=== PATIENT | female | born 1935 | race Caucasian/White ===

== ENCOUNTER 2016-12-06 10:26 | Inpatient (IN) | payer MEDICARE, MEDICAID ==
[~2016-12-06] VITALS: Ht 162.6 cm; Wt 88.4 kg
--- NOTE | ~2016-12-06 | HP ---
PATIENT'S NAME: LUDMILA BARAHONA [facility] AGE: 81 Y [address] ROOM: [address] [address] LOCATION: [facility] [place] ADMIT DATE: 12/06/2016 History & Physical DISCHARGE DATE: FAMILY PHYSICIAN: PEYMAN DENSON MD ATTENDING PHYSICIAN: PEYMAN DENSON DATE OF SERVICE: 12/07/2016 CLINICAL UPDATE: The patient is seen today. She says her back still hurts. Please see history and physical. She was admitted yesterday when she had unrelenting lower thoracic and upper back pain. Frankly, her workup yesterday showed no evidence of an acute spine problem and the rest of her workup was negative. Because of marked spasm and inability to get around and pain control, she has been admitted in the hospital. Today when I see her, she still says she is on the pain medicine, feels a little bit dizzy, and yesterday I ordered that we try to get Dr. Sina Constantino, the back surgeon, see her. She is not comfortable going home yet today because she is unsteady on her feet, so will go with PT/OT, continue pain management, and have Sina Constantino's review things tonight, and possibly home tomorrow. MD SAYDA HOGAN/salvatorel /[id number] D: [id number] T: [id number] HISTORY & PHYSICAL
--- NOTE | ~2016-12-06 | ER ---
PATIENT'S NAME: LUDMILA BARAHONA [facility] AGE: 81 Y [address] ROOM: [place] [address] LOCATION: [facility] [place] ADMIT DATE: 12/06/2016 ER/Outpatient Report DISCHARGE DATE: FAMILY PHYSICIAN: PEYMAN DENSON MD ATTENDING PHYSICIAN: PEYMAN DENSON Admission date and time documented in the medical record. I saw the patient at 1035 hours. CHIEF COMPLAINT: Mid thoracic back pain. HISTORY OF PRESENT ILLNESS: The patient is an 81-year-old female, who yesterday morning blew her nose and twisted to throw the Kleenex in the trash, felt a pop in her mid back, and since that time, she has had severe pain, unable to move much. Brought to the emergency room by paramedics via ambulance for evaluation. No recent coughs, colds, flus, fever, chills, or sweats. No lightheadedness, dizziness, syncope, or near syncope. No fall or other trauma. No headache, eyes, ears, nose, throat pain. No chest pain, shortness of breath. No abdominal pain, nausea, vomiting, diarrhea, or incontinence of stool or urine. No joint or muscle swelling, redness, or pain. No skin eruptions or rash. No history of endocrine problems, neuro changes, or psych issues. Mainly has problems with degenerative osteoarthritis, osteoporosis, spinal stenosis, degenerative joint disease, degenerative disk disease. HOME MEDICATIONS: See attached medication list. ALLERGIES: PENICILLIN, SULFA, IODINE, MORPHINE SULFATE, CODEINE. SOCIAL HISTORY: Nonsmoker since 1980, nondrinker. SIGNIFICANT PAST MEDICAL HISTORY: Hypertension, gastroesophageal reflux, degenerative osteoarthritis, osteoporosis, spinal stenosis, degenerative joint disease, degenerative disk disease, remote tobacco abuse. OPERATIONS: Left total knee arthroplasty, back surgery, hysterectomy, right shoulder surgery x2, bunionectomy, tonsillectomy, right total hip arthroplasty. REVIEW OF SYSTEMS: PATIENT'S NAME: LUDMILA BARAHONA [facility] AGE: 81 Y [address] ROOM: [address] [address] LOCATION: [facility] [place] ADMIT DATE: 12/06/2016 ER/Outpatient Report DISCHARGE DATE: FAMILY PHYSICIAN: PEYMAN DENSON MD ATTENDING PHYSICIAN: PEYMAN DENSON All systems reviewed by me are negative with the exception of those discussed in the history of present illness. PHYSICAL EXAMINATION: VITAL SIGNS: Temperature 97.8 tympanic, pulse 86, respirations 20, blood pressure 193/86, O2 saturation on room air is 96%. HEENT: Negative. NECK: Negative. LUNGS: Clear. HEART: Regular. ABDOMEN: Soft, nondistended, nontender. Good bowel tones. EXTREMITIES: Moves all 4 extremities. No peripheral edema, cyanosis, or deformity. NEUROVASCULAR: Intact. SKIN: Clear. MUSCULOSKELETAL: Straight leg raising negative. The patient has pain just with any movement. Tender mid thoracic back area. LABORATORY DATA AND X-RAYS: Plain films of the thoracic and lumbosacral spine showed old compression fracture at T11 and L3-L4. No acute fracture or subluxation. We will review all plain films with the radiologist. CT scan of the thoracic spine showed no acute subluxation or fracture. Does have degenerative changes. She has an old compression fracture at T11, nothing new according to the radiologist, who read the CT scan. See dictated transcribed report. EMERGENCY DEPARTMENT COURSE: I did give the patient IV Solu-Medrol 125 mg, IV fentanyl a total of 100 mcg, and Valium 5 mg IV in the emergency department. Discussed the patient with Dr. Denson and will admit the patient to [facility]. IMPRESSION: Mid thoracic back pain, mainly musculoskeletal. MD KATLYN HENDRIX/modl /[id number] d: 12/06/162105 t: 12/17/161810, OUTPATIENT REPORT
--- NOTE | ~2016-12-06 | CON ---
PATIENT'S NAME: LUDMILA DUARTE [facility] AGE: 81 Y [address] ROOM: [place] [address] LOCATION: [facility] [place] ADMIT DATE: 12/08/2016 Consultation DISCHARGE DATE: FAMILY PHYSICIAN: PEYMAN DENSON MD ATTENDING PHYSICIAN: PEYMAN DENSON DATE OF CONSULTATION: 12/07/2016 REFERRING PHYSICIAN: Zoraida Frost MD TIME: 11:00 p.m. HISTORY OF PRESENT ILLNESS: Ms. Duarte is an 81-year-old, white female, healthy. She was admitted to the [facility] on 12/06 after several days of severe pain. Initially in the emergency room, it was recorded that she had upper thoracic pain. Today, she reports the pain is truly low back pain. She has a history of chronic back pain, but this pain is different and worse than normal. No real trauma. She denies documented fevers and chills, but has had for the last several days recurring sweats. 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 No current left knee symptoms, not on suppressive antibiotics. She has a right total hip in place and reports increasing pain about the right hip. Pain radiates down the right leg greater than the left leg. No significant weakness or numbness or loss of bowel or bladder control. Her back history goes back to the mid 90s and she had multiple level laminectomies. She developed instability and has had chronic pain. She also has some degree of osteoporosis and has had multiple compression fractures at thoracic 11, lumbar 2, lumbar 3, and lumbar 4. The lumbar 4 level required vertebral body augmentation. There were no recognized infections after undergone previous back procedures. Not on any medical treatment for her osteoporosis. She stopped doing her exercise program because of increasing pain. She can normally walk several feet. At home, she takes Daypro and Cymbalta. ALLERGIES: TO: 1. PENICILLIN. 2. SULFA. 3. IODINE. 4. MORPHINE. 5. CODEINE. CURRENT MEDICATIONS: See list. PATIENT'S NAME: LUDMILA DUARTE [facility] AGE: 81 Y [address] ROOM: [place] [address] LOCATION: [facility] [place] ADMIT DATE: 12/08/2016 Consultation DISCHARGE DATE: FAMILY PHYSICIAN: PEYMAN DENSON MD ATTENDING PHYSICIAN: PEYMAN DENSON PAST MEDICAL HISTORY: 1. 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 2. Right total hip replacement. 3. Previous laminectomies in low back with instability and stenosis. 4. Placement of a dorsal column stimulator, 2 months ago. 5. Vertebral body augmentation for lumbar 4 compression fracture, multiple other lumbar compression fractures, and thoracic 11 compression fractures. SOCIAL HISTORY: Does not smoke. Does not drink alcohol. FAMILY MEDICAL HISTORY: Unremarkable. PERSONAL AND SOCIAL HISTORY: Lives with her daughter. She is basically only a household ambulator. Being able to walk only several feet, been this way for years. PHYSICAL EXAMINATION: GENERAL: White female, in mild distress. HEENT: Hears and sees. NECK: Nontender. BACK: Thoracic spine is nontender, extensively percussed the area about thoracic 11. There was no tenderness. Low back is generally tender. Left- sided dorsal column stimulator generator pocket and midline entry site are all healed. There is no redness, warmth, drainage, or fluctuance. There is spasm of the paraspinous muscles more on the right than the left. Discomfort on moving the right hip. No pain on moving the left hip. Left total knee replacement scar. There was multiple incisions healed without redness, warmth, drainage, or fluctuance. HEART: Pulse rate is regular. LUNGS: Able to take in a deep breath. ABDOMEN: Soft and nontender. NEUROLOGIC: Sensation is intact to both lower extremities. Motor strength 5/5 at the iliopsoas, quads, anterior tib, gastrocs, and extensor hallucis longus bilaterally. Normal tone. NERVE TENSION TESTING: Very positive Tinel's over the right lateral femoral cutaneous nerve. Negative on the left. Straight leg raise and bowstring test is negative. VASCULAR: Distal pulses are present. No edema. No calf pain. Integument intact. DIAGNOSTIC DATA: CT scan of thoracic spine shows no significant kyphosis degeneration, PATIENT'S NAME: LUDMILA DUARTE [facility] AGE: 81 Y [address] ROOM: [place] [address] LOCATION: [facility] [place] ADMIT DATE: 12/08/2016 Consultation DISCHARGE DATE: FAMILY PHYSICIAN: PEYMAN DENSON MD ATTENDING PHYSICIAN: PEYMAN DENSON significant compression fracture thoracic 11 which appears chronic and healed. CT scan of the lumbar spine shows destruction of the right lumbar 3 and 4 facet rotary subluxation of 3 and 4 stenosis. Compression fractures of lumbar 2 lumbar 3, lumbar 4, old chronic unhealed cemented vertebral body augmentation in lumbar 4, noticed other destruction of bone. No paraspinous soft tissue swelling. X-rays of the pelvis right hip as well fixed without lysis. Technetium bone scan shows chronic changes of thoracic 11 consistent with remote thoracic 11 fracture still healing. No significant uptake about the right total hip or the left total knee. LABORATORY TESTS: Urine culture, multiple organisms, urinalysis are unremarkable. C-reactive protein 1.56. Hemoglobin 13.1, but white blood count 9.7. Sedimentation rate 66. ASSESSMENT AND PLAN: Elevated sedimentation rate and C-reactive protein elevates especially with severe pain. Technetium bone scan and CT scan do not suggest any diskitis, epidural abscess, or destruction by tumor, but certainly not as sensitive as an MRI. MRI cannot be performed because of the dorsal column stimulator. Most likely, her symptoms are from instability of lumbar 3-[address] her in a soft thoracolumbosacral orthosis with shoulder straps. We will mobilize her on the brace. I have talked to Dr. Paula about initiating a medical treatment program for her osteoporosis. Certainly additional fractures would only make her symptoms worse. If over time, the brace does not allow her like a level activity that she desires and controls her pain reasonably, she could be indicated for decompression and in situ fusion. Risks, benefits, and alternatives have all been discussed. ZORAIDA FROST MD DPM/modl /[id number] d: 12/09/16 1512 t: 12/11/16 1730, CONSULTATION REPORT
--- NOTE | ~2016-12-06 | HP ---
PATIENT'S NAME: LUDMILA DUARTE [facility] AGE: 81 Y [address] ROOM: [address] [address] LOCATION: [facility] [place] ADMIT DATE: 12/08/2016 History & Physical DISCHARGE DATE: FAMILY PHYSICIAN: PEYMAN DENSON MD ATTENDING PHYSICIAN: PEYMAN DENSON DATE OF SERVICE: 12/08/2016 CLINICAL UPDATE I saw Ludmila Duarte this morning. She still cannot get around the room very well. She is not feeling that well on narcotics, and her pain is still not controlled, and she has nausea and insomnia related to medication. She also has a bone scan scheduled for today and further workup of her back pain in light of her elevated sedimentation rate. She has been seeing in consultation by Dr. Sina Constantino, and I do not feel she is ready to go home nor she is safe to do so yet. I would recommend we move her to inpatient care versus outpatient. MD SAYDA HOGAN/modl /[id number] D: 245 T: 033 HISTORY & PHYSICAL
--- NOTE | ~2016-12-06 | DS ---
PATIENT'S NAME: LUDMILA BARAHONA [facility] AGE: 81 Y [address] ROOM: [address] [address] LOCATION: [facility] [place] ADMIT DATE: 12/08/2016 Discharge Summary DISCHARGE DATE: 12/13/2016 FAMILY PHYSICIAN: Peyman Stevens MD ATTENDING PHYSICIAN: Peyman Stevens FINAL DIAGNOSIS: Low back pain secondary to lumbar disk disease and lumbar spinal stenosis. HOSPITAL COURSE: This elderly white female was seen in the emergency room prior to admission and presented with low back pain severe enough not to be able to get home. Her scans of the back showed degenerative change and spinal stenosis, but no acute fracture or dislocation, and old compression fractures. The patient was neurologically intact in her lower extremities on admission. The patient was put at bedrest, given pain medicine, and had continued pain over the 1st 48 hours after admission, was unable to get up and get around well without being lightheaded, and had some problems with pain medicines making her not feel very well. The patient, because of these persistent symptoms, was seen at my request by Dr. Sina Constantino, orthopedic/spine surgeon. Please see Dr. Constantino's notes on the chart and dictation. Dr. Constantino ordered other x-ray/scans of the patient's back and gave us recommendations for continued conservative therapy at this time, and if the patient fails conservative therapy over the next several weeks or months, he would consider a procedure on the patient's low back. Please see the description thereof in Dr. Constantino's notations and dictation. The patient is dismissed from the hospital today, 12/13/2016, to a detention because she really cannot care for herself at home because she has needs for activities of daily living, medical management, PT and OT for her back. She is dismissed on the med list shown. She is to see me back in the office in 1 week. She is to be seen earlier if she has footdrop, groin numbness or incontinence, or has trouble with pain. She understands. PEYMAN STEVENS MD OPTIONS TRADER/malika /[id number] d: 12/13/162000 t: 12/18/16 1440, DISCHARGE SUMMARY
[2016-12-06] MEDS ORDERED: MIRALAX17 GM PO (14:55)
[2016-12-06] MEDS ORDERED: LUNESTA2 MG PO (14:55)
[2016-12-06] MEDS ORDERED: ALDACTONE25 MG PO (14:56)
[2016-12-06] MEDS ORDERED: CYMBALTA60 MG PO (14:56)
[2016-12-06] MEDS ORDERED: NEXIUM40 MG PO (14:57)
[2016-12-06] MEDS ORDERED: HYZAAR 50-12.51 EACH PO (14:57)
[2016-12-06] MEDS ORDERED: ZANAFLEX4 MG PO (14:57)
[2016-12-06] MEDS ORDERED: HYDROCODON-ACE1 EAC4 PO (14:58)
[2016-12-06] MEDS ORDERED: RESTASIS 0.05%1 VIAL OPHTH (14:59)
[2016-12-06] MEDS ORDERED: ZOCOR20 MG PO (14:59)
[2016-12-06] MEDS ORDERED: DAYPRO600 MG PO (14:59)
[2016-12-06] MEDS ORDERED: THERAGRAN-M1 TAB PO (15:00)
[2016-12-06] MEDS ORDERED: BACTROBAN N1 GM/TUBE NOSE (15:00)
[2016-12-06] MEDS ORDERED: ZYRTEC10 MG PO (15:00)
[2016-12-06] MEDS ORDERED: ADVIL200 MG PO (15:01)
[2016-12-06] MEDS ORDERED: ADVIL PM CAPLE1 EACH PO (15:01)
[2016-12-07 14:12] LABS: BILIRUBIN URINE NEGATIVE (NEGATIVE); BLOOD URINE NEGATIVE /UL (NEGATIVE); COLOR URINE YELLOW (YELLOW); GLUCOSE URINE NEGATIVE (NEGATIVE); KETONE URINE NEGATIVE (NEGATIVE); LEUKOCYTES URINE NEGATIVE /UL (NEGATIVE); NITRITE URINE NEGATIVE (NEGATIVE); PROTEIN URINE NEGATIVE (NEGATIVE); SPEC GRAVITY URINE 1.015 (1.003-1.035); TURBIDITY URINE CLEAR (CLEAR); UROBILINOGEN URINE NORMAL (NORMAL)
[2016-12-07 14:46] LABS: BASOPHIL % 0.3 %; EOSINOPHIL # 0.1 K/uL (0.0-0.5); EOSINOPHIL % 0.7 %; HEMATOCRIT 39.1 % (30.0-46.0); HEMOGLOBIN 13.1 g/dL (10.0-15.0); IMMATURE GRANULOCYTE % 0.4 %; LYMPHOCYTE % 10.4 %; MCHC 33.5 gm/dL (32.0-36.5); MCV 95.4 fl (83.0-98.0); MONOCYTE # 0.9 K/uL (0.0-1.0); MONOCYTE % 9.5 %; MPV 8.7 fl (9.4-12.4); NEUTROPHIL # (ANC) 7.6 K/uL (1.8-7.8); NEUTROPHIL % 78.7 %; NRBC % 0 /100WBC (0-0.00); PLATELET COUNT 342 K/uL (150-450); RDW-CV 13.5 % (11.9-14.6); WBC 9.7 K/uL (4.0-11.0)
== END 2016-12-13 11:30 | DRG 552 ==
LOC: GMED 10:26 → GMSU 13:23
PROVIDERS: Orthopaedic Surgery; ADMIT Family Medicine
DX: M51.36 Other intervertebral disc degeneration, lumbar region (principal); I10 Essential (primary) hypertension; M19.90 Unspecified osteoarthritis, unspecified site; M48.06 Spinal stenosis, lumbar region; M81.0 Age-related osteoporosis without current pathological fracture; K21.9 Gastro-esophageal reflux disease without esophagitis; Z87.891 Personal history of nicotine dependence; Z96.652 Presence of left artificial knee joint; Z96.641 Presence of right artificial hip joint; Z96.89 Presence of other specified functional implants
CPT/HCPCS: A9503; G0378; J1650; J2405; J2930; J3010; J3360

== ENCOUNTER → 2016-12-06 | Outpatient (CLI) | payer MEDICARE, MEDICAID ==
[~2016-12-06] MED LIST: ADVIL PM CAPLE1 EACH PO; ADVIL200 MG PO; ALDACTONE25 MG PO; ARTIFICIAL TEA3.5 G1 OPHTH; ASCORBIC ACID500 MG PO; BACTROBAN N1 GM/TUBE NOSE; CIPRO500 MG PO; CYMBALTA60 MG PO; DAYPRO600 MG PO; HYDROCODON-ACE1 EAC4 PO; HYZAAR 50-12.51 EACH PO; K-TAB 10MEQ10 MEQ PO; LUNESTA2 MG PO; MACROBID100 MG PO; MIRALAX17 GM PO; NEXIUM40 MG PO; NORVASC5 MG PO; PROTONIX40 MG PO; RESTASIS 0.05%1 VIAL OPHTH; SENOKOT8.6 MG PO; THERAGRAN-M1 TAB PO; TYLENOL325 MG PO; VALIUM5 MG PO; ZANAFLEX4 MG PO; ZOCOR20 MG PO; ZOFRAN4 MG PO; ZYRTEC10 MG PO
== END | disposition disaster alternative care site (69) ==
LOC: GAMB 09:54
DX: M54.9 Dorsalgia, unspecified (principal); R11.0 Nausea; G89.29 Other chronic pain; I10 Essential (primary) hypertension; E78.5 Hyperlipidemia, unspecified; Z79.899 Other long term (current) drug therapy
CPT/HCPCS: A0425; A0427; J2405; J3010

== ENCOUNTER → 2016-12-28 | Outpatient (CLI) | payer MEDICARE, MEDICAID ==
[2016-12-28 18:04] LABS: BILIRUBIN URINE NEGATIVE (NEGATIVE); BLOOD URINE 10 /UL (NEGATIVE); COLOR URINE YELLOW (YELLOW); GLUCOSE URINE NEGATIVE (NEGATIVE); KETONE URINE NEGATIVE (NEGATIVE); LEUKOCYTES URINE 100 /UL (NEGATIVE); NITRITE URINE NEGATIVE (NEGATIVE); PROTEIN URINE NEGATIVE (NEGATIVE); SPEC GRAVITY URINE 1.015 (1.003-1.035); TURBIDITY URINE 3+ (CLEAR); UROBILINOGEN URINE NORMAL (NORMAL)
[2016-12-28 18:16] LABS: BACTERIA URINE MANY (NEGATIVE); EPITHELIAL URINE 0-2 #/HPF (NEGATIVE); MUCUS URINE 1+ (NEGATIVE); RBC URINE RARE #/HPF (NEGATIVE)
[2016-12-28 18:17] LABS: AMORPHOUS URINE 2+ (NEGATIVE); CRYSTALS URINE TRIPLE PHOSPHATE (NEGATIVE)
== END | disposition disaster alternative care site (69) ==
LOC: LJOHN2 17:51
PROVIDERS: Family Medicine
DX: N39.0 Urinary tract infection, site not specified (principal); R39.15 Urgency of urination

== ENCOUNTER 2016-12-30 09:09 | Inpatient (IN) | payer MEDICARE, MEDICAID ==
[~2016-12-30] VITALS: Ht 162.6 cm; Wt 82.7 kg
--- NOTE | ~2016-12-30 | CON ---
PATIENT'S NAME: LUDMILA BARAHONA [facility] AGE: 81 Y [address] ROOM: [id number] [place], [place] [address] LOCATION: [facility] ADMIT DATE: 12/30/2016 Consultation DISCHARGE DATE: 01/18/2017 FAMILY PHYSICIAN: Rick Stevens MD ATTENDING PHYSICIAN: Melquiades Markham DATE OF CONSULTATION: 01/17/2017 REFERRING PHYSICIAN: Sina Constantino MD Team members reporting include Dr. Markham; Nereyda Lackey, health and social care teacher; Shaye Rahman, RN; Criss Hutchins, PT; Jaquelin Davenport, PT; Nessa Leon, OT; Jade Wesley, therapeutic rec; and Sister Ramona Ochoa, Pastoral Care. CURRENT STATUS: Ludmila is an 81-year-old woman admitted to our inpatient rehab unit with lumbar spinal stenosis. The patient is on a regular diet with a 1200 mL fluid restriction. Her prealbumin is 22. She is getting Ensure Compact t.i.d. with meals. The patient can transfer sit to supine, standby assistance and extra time; supine to sit, mod I; bed to chair transfers, mod I using a four-wheeled walker. She can walk 50 feet at mod I using a four-wheeled walker, and she can climb 4 stairs at contact guard assistance. She has met her 38 long-term PT goals. The patient can dress her upper body at standby, needs help with brace; lower body dressing, moderate assistance helping with shoes and socks; grooming, standby to mod I; bathing, standby; toilet and shower transfers, standby; toileting, standby; feeding, standby to mod I; and home management tasks, standby. Car transfers are currently at standby assistance. Education was given on community. She is open to pastoral care visits. The patient is on and off refusing different medications. The patient would like home health care upon discharge. DISCHARGE PLAN: The patient is receiving 3 hours of PT, OT Monday through Monday. The patient has daily rehab, nursing, and physiatry involvement as well as therapeutic recreational services 4 days per week. The patient has shown functional improvement and is progressing. Please see her plan of care for specific goals. Plan is for the patient to discharge on January 18, 2017, with Home Health Care. This was set up with [facility] per the patient's request. NEREYDA LACKEY FOR MELQUIADES MARKHAM MD TD/salvatorel PATIENT'S NAME: LUDMILA BARAHONA [facility] AGE: 81 Y [address] ROOM: [address] [place] [address] LOCATION: [facility] ADMIT DATE: 12/30/2016 Consultation DISCHARGE DATE: 01/18/2017 FAMILY PHYSICIAN: Rick Stevens MD ATTENDING PHYSICIAN: Melquiades Markham /[id number] d: 01/23/172010 t: 02/10/17 [facility], CONSULTATION REPORT
--- NOTE | ~2016-12-30 | CON ---
PATIENT'S NAME: LUDMILA BARAHONA [facility] AGE: 81 Y [address] ROOM: [address] [place], [place] [address] LOCATION: [facility] ADMIT DATE: 12/30/2016 Consultation DISCHARGE DATE: FAMILY PHYSICIAN: PEYMAN DENSON MD ATTENDING PHYSICIAN: Melquiades Markham DATE OF CONSULTATION: 01/03/2017 REFERRING PHYSICIAN: Sina Constantino MD Team members reporting include Dr. Markham; Nereyda Lackey, nephrology social worker; Kasandra Ceballos, RN; Criss Hutchins, PT; Jaquelin Davenport, PT; Nessa Leon, OT; Tiki Castaneda, Speech Therapy; Jade Wesley, therapeutic rec; and Sister Ramona Ochoa, Pastoral Care. CURRENT STATUS: Ludmila is an 81-year-old woman admitted to our inpatient rehab unit on December 30, 2016, from [facility] in [place]. The patient did have evidence of an acute fracture, but because of persistent back pain, gait instability, and needing help for activities of daily living, she was admitted to the hospital. Of note, it is noted that the patient may have to have back surgery in the future with Dr. Constantino. She has a history of coronary artery disease, depression, osteoarthritis, severe low back pain, gastroesophageal reflux disease, hyperlipidemia, recent UTI, and constipation. The patient is continent of bowel and bladder. No skin issues. Takes Saline and Tylenol for pain. She can transfer sit to stand at contact guard assistance. She is walking anywhere from 30 to 35 feet at contact guard assistance. Stairs have not been done yet. The patient can dress her upper body at standby; lower body, dependent, refuses to use adaptive equipment; grooming, standby; bathing, moderate assistance; toilet and shower transfers, minimal assistance; toileting, dependent; and feeding, standby. Initial eval was done by therapeutic rec. The patient would like to go home with her daughter. Pain management seems to be one of the patient's biggest issues. The patient is very open to pastoral care. No pharmacy concerns. DISCHARGE PLAN: The patient is receiving 3 hours of PT and OT Monday through Monday. The patient has daily rehab, nursing, and physiatry involvement as well as therapeutic recreational services 4 days per week. The patient has shown functional improvement and is progressing. Please see her plan of care for specific goals. Plan is for the patient to discharge in approximately one week, may need longer. PATIENT'S NAME: LUDMILA BARAHONA [facility] AGE: 81 Y [address] ROOM: [address] [place] [address] LOCATION: [facility] ADMIT DATE: 12/30/2016 Consultation DISCHARGE DATE: FAMILY PHYSICIAN: PEYMAN DENSON MD ATTENDING PHYSICIAN: Melquiades Markham FOR MELQUIADES MARKHAM MD TD/modl /[id number] d: 01/09/17 1435 t: 01/24/17 0809, CONSULTATION REPORT
--- NOTE | ~2016-12-30 | HP ---
PATIENT'S NAME: LUDMILA BARAHONA [facility] AGE: 81 Y [address] ROOM: [place] [address] LOCATION: [facility] ADMIT DATE: 12/30/2016 History & Physical DISCHARGE DATE: FAMILY PHYSICIAN: PEYMAN DENSON MD ATTENDING PHYSICIAN: Melquiades Go DATE OF SERVICE: 12/31/2016 CHIEF COMPLAINT: Back pain. HISTORY OF PRESENT ILLNESS: The patient is an elderly white female, who was just in the hospital on the acute side for several days with severe low back pain. She had sprained her back. A workup at that time included being seen by Dr. Sina Constantino, spine surgeon. Her CT scan showed no evidence of acute fracture, but because of persistent back pain, gait instability, and needing help for activities of daily living, she was admitted to the hospital on 12/30/[address] Go to the gerp unit at [facility]. I will follow along because of her history of hypertension, depression, chronic pain, hyperlipidemia, recurrent UTI, recent UTI, and chronic constipation. CURRENT MEDICATIONS: Per Dr. Go's note, they have been reviewed. ALLERGIES: SULFA, IODINE, AND CODEINE. REVIEW OF SYSTEMS: Positive for coronary artery disease, depression, osteoarthritis, severe low back pain, GERD, hyperlipidemia, recent UTI, and constipation. PHYSICAL EXAMINATION: GENERAL: An elderly white female, who is pale. She is oriented to person, place, and time. HEENT: Shows she wears glasses. Her pupils react to light and accommodation. TMs are not visualized. Posterior pharynx is clear. NECK: Unremarkable. No carotid bruit. Thyroid not enlarged. LUNGS: Clear without wheeze or rub. HEART: Shows no murmur, gallop, or rub. ABDOMEN: Soft without point tenderness/back brace present. PELVIC AND RECTAL: Not done. EXTREMITIES: Unremarkable. NEUROLOGIC: Cranial nerves intact. No obvious focal abnormality. Mood is depressed related to current health situation. Not suicidal. PATIENT'S NAME: LUDMILA BARAHONA [facility] AGE: 81 Y [address] ROOM: [place] [id number] LOCATION: [facility] ADMIT DATE: 12/30/2016 History & Physical DISCHARGE DATE: FAMILY PHYSICIAN: PEYMAN DENSON MD ATTENDING PHYSICIAN: Melquiades Go IMPRESSION: 1. Severe acute on chronic low back pain. 2. Unstable gait. 3. Dependence for activities of daily living. 4. Hypertension, essential. 5. 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 6. Osteoarthritis, generalized. 7. Constipation, intermittent. 8. Gastroesophageal reflux disease. 9. Hyperlipidemia. 10. Recent urinary tract infection. PLAN: As above. PEYMAN DENSON MD AIR CONDITIONING SUPERVISOR/modl /[id number] D: [id number] T: [id number] HISTORY & PHYSICAL
--- NOTE | ~2016-12-30 | DS ---
PATIENT'S NAME: LUDMILA BARAHONA [facility] AGE: 81 Y [address] ROOM: [id number] [place], [place] [address] LOCATION: [facility] ADMIT DATE: 12/30/2016 Discharge Summary DISCHARGE DATE: FAMILY PHYSICIAN: Rick Stevens MD ATTENDING PHYSICIAN: Melquiades Markham This 81-year-old lady was admitted to Rehab Unit at [facility], [place], [place] on 12/30/2016, is discharged to go to home on 01/18/2017. 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 1. She was put on Intensive Rehab. She did well, made good progress, she still has pain and is still weak and is going to be followed by Dr. Silvia Constantino for a possible surgical interference down the road. 2. She is at the present time, alert, oriented. 3. VITAL SIGNS: Blood pressure 137/63, temperature 97.7, pulse 106, and respirations 15. She can ambulate up to 250 feet x2 at modified independence with 4 wheeled walker. 4. She will continue with home Health, PT, OT, and aide 3 times per week for the coming 3 weeks and follow up with her family physician Dr. Erica Stevens. All her medication are given for 30 days and renewal per Dr. Erica Stevens. No followup with me. She must follow with her family physician, Dr. Erica Stevens, as soon as possible. Follow up with Dr. Silvia Constantino as he sees fit. No driving until she is reevaluated. She is at the present time on the following medications: 1. Norvasc 5 mg p.o. b.i.d. 2. Lacri-Lube 0.25 inch ophthalmic every night at bedtime. 3. Teargen 1-2 drops ophthalmic 3 times daily. 4. Vitamin C 500 mg twice daily. 5. Cymbalta 60 mg p.o. daily. 6. Hyzaar 50/12.5 give 2 tablets daily. 7. Theragran-M 1 tablet p.o. daily. 8. Macrobid 100 mg p.o. b.i.d. until 01/19/2017 then stop. 9. Daypro 600 mg daily. 10. Protonix 40 mg p.o. daily. 11. MiraLAX 17 g p.o. daily. 12. K tablet 40 mEq p.o. daily. PATIENT'S NAME: LUDMILA BARAHONA [facility] AGE: 81 Y [address] ROOM: [address] [place] [id number] LOCATION: [facility] ADMIT DATE: 12/30/2016 Discharge Summary DISCHARGE DATE: FAMILY PHYSICIAN: Rick Stevens MD ATTENDING PHYSICIAN: Melquiades Markham 13. Senokot-S 1 tablet twice daily p.o. 14. Zocor 40 mg p.o. daily. 15. Aldactone 25 mg p.o. daily. 16. Zanaflex 4 mg p.o. daily. 17. Ambien 5 mg p.o. at bedtime. 18. Tylenol 650 q.6 h., 36 of them, do not exceed acetaminophen 4 g q.24 h. 19. [place] 10/325 1 tablet p.o. q.6 h., 36 of them, do not exceed acetaminophen 4 g q.24 h. 20. Advil 400 mg q.6 h. 21. Zofran 8 mg p.o. q.6 h. p.r.n., do not give for 30 days. FINAL DIAGNOSES: 1. Unstable gait. 2. Dependent activities of daily self-care. 3. Compression deformity of L3, L4, and L5 with myelopathy. 4. Status post vertebroplasty L4 with myelopathy and falling. 5. Hypertension. 6. Reflux gastric disease. 7. Neuropathic pain. 8. Status post left total knee arthroplasty per history. 9. Urinary tract infection, on and off. 10. Dyslipidemia. The patient is to follow with her family physician as soon as possible. She should not drive and/or operate any mechanical device until she is reevaluated. All the above was explained to her in detail and all her questions answered. She verbalized understanding and agreement with plan of care. MELQUIADES MARKHAM MD WMDiana/modl /[id number] d: 01/18/17 0503 t: 01/18/17 0813, DISCHARGE SUMMARY
--- NOTE | ~2016-12-30 | HP ---
PATIENT'S NAME: LUDMILA BARAHONA [facility] AGE: 81 Y [address] ROOM: [place] [address] LOCATION: [facility] ADMIT DATE: 12/30/2016 History & Physical DISCHARGE DATE: FAMILY PHYSICIAN: PEYMAN STEVENS MD ATTENDING PHYSICIAN: Melquiades Go DATE OF SERVICE: HISTORY OF PRESENT ILLNESS: This 81-year-old lady is admitted for continuous medical treatment and intensive rehabilitation: 1. Unstable gait. 2. Dependent activities of daily living, markedly unable, and at risk of falling. She is having marked stenosis in the lumbar spine with degenerative changes and myelopathy leading to marked weakness. She cannot stand. She is at high risk of falling. X-ray of her spine showed compression deformity of L3, L4, L5, and part of L4 vertebroplasty. She has also past history of significant hypertension and spasms in the bilateral lower extremities with weakness and UTI. She also has constipation. At the present time, she is alert, oriented. Vitals are as follows: Blood pressure 155/71, temperature 97.8, pulse 100, respiration rate 16, and she is 5 feet 4 inches tall and weighs 88.4 kg. ALLERGIES: SHE IS ALLERGIC TO SULFA AND IODINE AND CODEINE. SHE IS AT HIGH RISK OF FALLING, AND SHE NEEDS TO BE ASSISTED. SHE IS AT THE PRESENT TIME GOING TO BE PUT ON PT/OT THREE HOURS PER DAY, 15 HOURS PER WEEK, FOR THE COMING 2-3 WEEKS AIMING TO DISCHARGE ON MODIFIED INDEPENDENCE AND THEN FOLLOW THEREAFTER. HOWEVER, SHE MIGHT REQUIRE SURGERY. WE WILL ASK ORTHOPEDIC SPINE SURGEON, DR. Silvia FROST, TO SEE AND ADVISE. WE WILL SEND IN A.M. FOR URINALYSIS, CBC, CMS, AND PREALBUMIN. MEDICATIONS: She is on the following medications: 1. Aldactone 25 mg p.o. daily. 2. Cymbalta Delayed Release 60 mg 1 p.o. daily. PATIENT'S NAME: LUDMILA BARAHONA [facility] AGE: 81 Y [address] ROOM: [place] [address] LOCATION: [facility] ADMIT DATE: 12/30/2016 History & Physical DISCHARGE DATE: FAMILY PHYSICIAN: PEYMAN STEVENS MD ATTENDING PHYSICIAN: Melquiades Go 3. Daypro 1 tablet p.o. daily. 4. Hyzaar 50/12.5 mg 2 tablets p.o. daily. 5. Nucynta 2 mg p.o. daily. 6. MiraLAX 17 g p.o. once daily. 7. Nexium capsule 40 mg 1 p.o. daily. 8. Theragran-M 1 tablet p.o. daily. 9. Zanaflex 4 mg p.o. once daily. 10. Zocor 20 mg p.o. daily. 11. Cipro 500 mg 1 p.o. daily for 7 days, started from 12/28/2016. 12. Norvasc 5 mg p.o. b.i.d. Hold if systolic blood pressure below 110. 13. Cyclosporine Restasis emulsion 0.05%, apply to right eye, dry eyes, as needed. 14. Senokot-S 8.6/50 mg 1 p.o. b.i.d. 15. Tylenol 650 p.o. q.6 hours, do not exceed acetaminophen 4 g q.24 hours. 16. [place] 10/325 one p.o. q.6 hours as needed, do not exceed acetaminophen 4 g q.24 hours. 17. Bactroban ointment 2%, apply to the nares both sides topically as needed. 18. Dulcolax suppository 10 mg rectally p.r.n. 19. Ibuprofen tablet 200 mg. Give 400 mg p.o. q.6 hours as needed. 20. MOM 30 mL p.o. daily as needed. 21. Valium 5 mg p.o. t.i.d. as needed. 22. Zyrtec 10 mg p.o. daily as needed. 23. Lovenox 40 mg subcu daily. ASSESSMENT AND PLAN: We will put on intensive PT/OT 3 hours per day, 15 hours per week, for the coming 2 weeks to 3 weeks and discharge and probably if necessary, go to surgery from here to relieve her spinal stenosis. We will keep on Dr. Erica Stevens and Dr. Luis Enrique Frost to follow as necessary. All the above was explained to her in detail. She verbalized understanding and agreement with plan of care. MD KENNEDY BRUSH/malika /[id number] D: [id number] T: [id number] HISTORY & PHYSICAL
--- NOTE | ~2016-12-30 | CON ---
PATIENT'S NAME: LUDMILA BARAHONA [facility] AGE: 81 Y [address] ROOM: [id number] [place], [place] [address] LOCATION: [facility] ADMIT DATE: 12/30/2016 Consultation DISCHARGE DATE: 01/18/2017 FAMILY PHYSICIAN: Rick Stevens MD ATTENDING PHYSICIAN: Melquiades Markham DATE OF CONSULTATION: 01/10/2017 REFERRING PHYSICIAN: Sina Constantino MD Team members reporting include Dr. Markham; Nereyda Lackey, social welfare administrator; Kasandra Ceballos, RN; Jaquelin Davenport, PT; Criss Hutchins, PT; Nessa Leon, OT; Tiki Castaneda, Speech Therapy; Jade Wesley, therapeutic rec; and Sister Karen Baron, Pastoral Care. CURRENT STATUS: Ludmila is an 81-year-old woman, admitted to our inpatient rehab unit with lumbar spinal stenosis. The patient is incontinent of bowel occasionally, has dribbling of urine occasionally. No skin issues. Does complain of chronic back pain and takes [place]. The patient is on a regular diet with a 1200 mL fluid restriction. Prealbumin is 20, which is up from 18. She was started on Ensure pudding b.i.d. at lunch and dinner to provide additional nutrients. She can transfer sit to supine and supine to sit at standby; sit to stand and stand to sit, standby; and bed to chair, standby; chair to bed, standby using a front-wheeled walker. She can walk 35 to 90 feet with a four-wheeled walker at standby assistance. Stairs have not been done yet for safety. She has met 4/4 short-term PT goals. The patient can dress her upper body at standby; lower body, moderate assistance; grooming, standby; bathing, minimal assistance; toilet and shower transfers, contact guard assistance; toileting, dependent; and feeding, standby assistance. She has met 4/5 short-term OT goals. Car transfers are currently at contact guard assistance, she needs cuing. She is almost at a standby assistance level. Coping skills were given as well. She has been very open to pastoral care. No pharmacy concerns. DISCHARGE PLAN: The patient is receiving 3 hours of PT, OT Miguel Angel through Monday. The patient has daily rehab, nursing, and physiatry involvement as well as therapeutic recreational services 4 days per week. The patient has shown functional improvement and is progressing. Please see her plan of care for specific goals. Plan is for the patient to discharge in approximately 7 days. Plan is for the patient to discharge to home where she lives with her daughter and her [id number]. PATIENT'S NAME: LUDMILA BARAHONA [facility] AGE: 81 Y [address] ROOM: [address] [address] LOCATION: [facility] ADMIT DATE: 12/30/2016 Consultation DISCHARGE DATE: 01/18/2017 FAMILY PHYSICIAN: Rick Stevens MD ATTENDING PHYSICIAN: Melquiades Markham FOR MELQUIADES MARKHAM MD TD/modl /[id number] d: 01/23/172003 t: 02/10/17 [facility] hospital, CONSULTATION REPORT
[~2016-12-30 09:09] MED LIST changes: -ARTIFICIAL TEA3.5 G1 OPHTH; -ASCORBIC ACID500 MG PO; -CIPRO500 MG PO; -K-TAB 10MEQ10 MEQ PO; -MACROBID100 MG PO; -NORVASC5 MG PO; -PROTONIX40 MG PO; -SENOKOT8.6 MG PO; -TYLENOL325 MG PO; -VALIUM5 MG PO; -ZOFRAN4 MG PO
--- NOTE | 2016-12-30 09:20 | NUR ---
PT ADMITTED TO [facility] FROM [facility] VIA W/C WITH FAMILY PRESENT. PT STATED HER GOAL IS TO GET STRONGER WITH THERAPY TO THEN HAVE SURGERY ON HER BACK AND THEN GO HOME RATHER THAN BACK TO [place] PT A/O X 3. PT IN BACK BRACE, TOLERATES POORLY, STATED IT ALWAYS FEELS LIKE IT'S CHOKING ME AND OFTEN FEELS LIKE SHE COULD THROW UP. STATED THEY HAVE COME TO ADJUST THE BRACE MULTIPLE TIMES. PT CURRENTLY TAKING NORCO FOR PAIN. PT UP WITH STAND PIVOT TO TOILET AND CHAIR WITH 1-2 ASSIST. PT INC. OF URINE, DRIBBLING, AND STRESS INC. BM 12/29. PT COOPERATIVE WITH ADMISSION PROCESS.
--- NOTE | 2016-12-30 17:16 | NUR ---
Significant Event: Pt admitted at 0920 from [facility]. Pt cooperative with admission process, alert and oriented [facility] historian. Back brace on. Pt voiding well, currently being treated with cipro for UTI. Rowe at 1058. Pt reported getting nauseated easily. Takes pills slowly r/t nausea, and needs to have food on stomach. Pt reports that at times her brace feels like it is choking her. refused admission medications that were scheduled for 1100 she did not take them till 1445. Pt reported BM yesterday. Pt fatigued from therapy. Follow up: pain management, activity, safety
[2016-12-30] MEDS ORDERED: CIPRO500 MG PO (19:35)
[2016-12-30] MEDS ORDERED: NORVASC5 MG PO (19:37)
[2016-12-30] MEDS ORDERED: SENOKOT8.6 MG PO (19:39)
[2016-12-30] MEDS ORDERED: VALIUM5 MG PO (19:45)
[2016-12-31 04:46] LABS: BASOPHIL # 0.1 K/uL (0.0-0.2); BASOPHIL % 0.7 %; EOSINOPHIL # 0.2 K/uL (0.0-0.5); EOSINOPHIL % 2.3 %; HEMOGLOBIN 11.8 g/dL (10.0-15.0); IMMATURE GRANULOCYTE % 0.3 %; LYMPHOCYTE # 1.4 K/uL (0.8-4.0); MCH 32.2 pg (27.0-34.0); MCHC 34.7 gm/dL (32.0-36.5); MCV 92.6 fl (83.0-98.0); MONOCYTE # 0.8 K/uL (0.0-1.0); MONOCYTE % 10.9 %; MPV 8.7 fl (9.4-12.4); NEUTROPHIL % 66.8 %; NRBC % 0 /100WBC (0-0.00); PLATELET COUNT 342 K/uL (150-450); RBC 3.67 M/uL (3.00-5.00); RDW-CV 13.3 % (11.9-14.6); WBC 7.5 K/uL (4.0-11.0)
--- NOTE | 2016-12-31 04:50 | NUR ---
Significant Event:A/O. 1-2 assist pivot transfer. Wears back brace when up r/t compression fractures of spine. Meds a couple at a time with water. VEry particular on how she would like things accomplished. Denies nausea this shift. Bed alarm on. Call light within reach. Follow up:Pain management. Strengthening. Safety.
[2016-12-31 05:13] LABS: ALK PHOS 66 IU/L (33-138); ALT 25 IU/L (12-78); ANION GAP 16.2 (10.0-19.0); AST 33 IU/L (10-40); BLOOD UREA NITROGEN 14 mg/dL (6-24); CHLORIDE 93 mMol/L (96-110); CO2 23 mMol/L (22-32); CREATININE 0.6 mg/dL (0.5-1.1); ESTIMATED GFR (MDRD EQUATION) > 60; POTASSIUM 3.2 mMol/L (3.7-5.1); SODIUM 129 mMol/L (135-145); TOTAL BILIRUBIN 0.5 mg/dL (0.0-1.5)
[2016-12-31 09:34] LABS: BILIRUBIN URINE NEGATIVE (NEGATIVE); BLOOD URINE NEGATIVE /UL (NEGATIVE); GLUCOSE URINE NEGATIVE (NEGATIVE); KETONE URINE 50 mg/dL (NEGATIVE); LEUKOCYTES URINE 25 /UL (NEGATIVE); NITRITE URINE NEGATIVE (NEGATIVE); PROTEIN URINE NEGATIVE (NEGATIVE); UROBILINOGEN URINE NORMAL (NORMAL)
[2016-12-31 09:49] LABS: COLOR URINE YELLOW (YELLOW); TURBIDITY URINE 1+ (CLEAR)
[2016-12-31 09:57] LABS: RBC URINE NEGATIVE #/HPF (NEGATIVE); WBC URINE RARE #/HPF (NEGATIVE)
[2016-12-31 09:58] LABS: AMORPHOUS URINE 1+ (NEGATIVE); BACTERIA URINE NEGATIVE (NEGATIVE); EPITHELIAL URINE NEGATIVE #/HPF (NEGATIVE)
--- NOTE | 2016-12-31 16:41 | NUR ---
Significant Event:Pt alert and orientated, plus forgetful @ times. Expresses needs well. 1-2 assist pivot transfer/ walker/gaitbelt. Cipro po for UTI. Back brace to be on when up, pt can take off for shower after she has sat in shower, reapplied before she stand, clarification order on chart. No complaints of nausea, but has had poor attitude. Daughter here, Jessica, visited this afternoon, encouraged her to encourage pt to eat, or what she would want. DOLORES Tamayo called in diet pt had ordered, but still does not want to eat. Alarms on @ a times. Pt takes meds slowly, whole with water. Order for potassium po started today, fluid restriction started for 1500. Pt has been pleasant and cooperative with plan of care. Follow up:pain control, encourage nutrition, alarms on for fall @ risk.
--- NOTE | 2017-01-01 04:22 | NUR ---
Significant Event: Patient is alert and oriented can be forgetful. Is 1-2 assist pivot transfer GB/Walker. Assisted into the bathroom per W/C. Moves very slowly. Is to wear a back brace when up due to her Compression fractures. Wanted to wear it in bed t/o the night stating she can't reposition w/o it. Appetite is poor and c/o of nausea at times but none tonight. Is on a 1500 mls fluid restriction. Has denied pain or discomfort and refused even Tylenol for pain. Take Ambien at bedtime sleep well. Had to wake to see if she needed to void at 0100, denied the need. Follow up:
[2017-01-01 05:49] LABS: ALBUMIN 2.9 gm/dL (3.5-5.0); ALK PHOS 64 IU/L (33-138); ALT 28 IU/L (12-78); ANION GAP 14.3 (10.0-19.0); AST 34 IU/L (10-40); BLOOD UREA NITROGEN 8 mg/dL (6-24); CALCIUM 8.8 mg/dL (8.5-10.5); CHLORIDE 94 mMol/L (96-110); CO2 25 mMol/L (22-32); CREATININE 0.5 mg/dL (0.5-1.1); ESTIMATED GFR (MDRD EQUATION) > 60; POTASSIUM 3.3 mMol/L (3.7-5.1); SODIUM 130 mMol/L (135-145); TOTAL BILIRUBIN 0.5 mg/dL (0.0-1.5)
--- NOTE | 2017-01-01 14:53 | NUR ---
Significant Event:Pt slept in awhile this am till am meal came. Alert and orientated x3, forgetful @ times, expresses needs well. Cipro for UTI, po. Back brace on when up. No complaints of nausea, still needs encouragement to eat. Daughter Jessica here again this afternoon. Pt takes meds whole, and slowly with water. New order on potassium today. Fluild restriction decreased to 1250 ml. Alarms on all timesPt has been pleasant and cooperative with plan of care. Follow up: pain control, encourage nutrition, alarms on for fall @ risk, 1250 fluid restrict.
--- NOTE | 2017-01-02 04:31 | NUR ---
Significant Event: Patient is alert and oriented can be forgetful, VSS. Up 1-2 assist pivot transfer with GB/Walker. W/C to BR. Has back brace on at all times while up but likes it on in bed as well. [place] given at bedtime last night and she takes a scheduled Ambien. Takes meds whole with water. Has a poor appetite. Is on a 1250 fluid restriction and daily weight. Potassium was increased yesterday. Was incontinent during the night. Follow up:Alarm for safety
[2017-01-02 06:22] LABS: ALBUMIN 3.2 gm/dL (3.5-5.0); ALK PHOS 66 IU/L (33-138); ALT 29 IU/L (12-78); ANION GAP 11.8 (10.0-19.0); AST 31 IU/L (10-40); BLOOD UREA NITROGEN 11 mg/dL (6-24); CHLORIDE 96 mMol/L (96-110); CO2 26 mMol/L (22-32); CREATININE 0.6 mg/dL (0.5-1.1); ESTIMATED GFR (MDRD EQUATION) > 60; POTASSIUM 3.8 mMol/L (3.7-5.1); SODIUM 130 mMol/L (135-145); TOTAL BILIRUBIN 0.4 mg/dL (0.0-1.5); TOTAL PROTEIN 6.5 g/dL (6.0-8.4)
--- NOTE | 2017-01-02 19:27 | NUR ---
Significant Event: Pt c/o pain in her back this a.m. and requested a norco at 0804 prior to shower with OT. Pt has TLSO brace she wears at all times, pt reports that she cants move without it. Pt requesting Dr. JUAN Constantino to come up and see her. Pt drank 480 mls of fluid and had a moderate bm today. Pt likes to wait and take her pills with food, so pills were late this am as she did not get what she ordered for breakfast so we had to wait. Follow up: Call Dr. Constantino to come see patient.
--- NOTE | 2017-01-03 04:54 | NUR ---
Significant Event:Up with 1-2 assist and use of wheeled walker, back brace on when up but pt likes to wear it in bed as well for extra support. Has voided x 2, no incontinence, last bm on 01-02. Takes meds whole with water, uses sippy cup per her request--does not have swallowing issues. [place] 1 tab at 2044 for pain rated at 7 to mid/low back, effective. 1250 ml fluid restriction. Dougie to visit today as pt has questions. Has spinal cord stimulator to low back. Needs to wear shoes with transfers as has left leg shorter than right, and her soles of her shoes are different heights. Follow up:Pt wants Assistant Account Manager called as brace continues to slide upward. wants pain med at 0715 prior to therapies. Needs UA and culture on 01-06.
--- NOTE | 2017-01-03 09:01 | NUR ---
D: Therapeutic Recreation Initial Assessment on the 01/03/17. I: Patient seen for 2 units at 901 to begin initial evaluation. Pt has dx lumber spine stenosis, TLSO with spinal precautions. R: Patient's current living situation and status: will d/c to mobile home Home entrance steps: lift in place Living with: daughter Spouses name: # of children: 3 Driving: yes, daughter can provide transportation (car) Ambulating: SBA > mod I Equipment: canes, WC, walkers (both) Hand Dominance: R L Beef Selector strength: Eye sight: glasses Reading ability: reports no problem Hearing: slight [place] Speech: clear Cognition: alert Comprehension: good Following directions: yes Initiating: yes Eye contact: good Affect: flat COMMUNITY INVOLVEMENT: occ. grocery shopping, out to eat, [facility] daily, card clubs (3) [employer] LEISURE INTERESTS: watch TV, patricia, read (newspaper, magazines, books), word finds, cat Patient is referred by medical staff for treatment and evaluation in the following areas: Community Skills, Functional Leisure Skills, Participation, Leisure Education/Behaviors, Family Education, Emotional. Information obtained: Interview, Chart Review, Observation, other. BARRIERS TO LEISURE: Financial, Physical, Lifestyle (reports problems with depression) Patient determined to be: APPROPRIATE FOR THERAPEUTIC RECREATION ASSESSMENT. TREATMENT WILL INCLUDE: Community living skills training Functional leisure development Physical skills development Leisure education Emotional/behavioral adaptation Family education Community resources/packet TARGET EQUIPMENT/INFORMATION: Parking Permit HAS IN PLACE Community Resources Energy conservation in community setting Van/Service/Taxi Scrip Adapted Leisure Equipment Stress management/Relaxation techniques Functional car transfers Leisure Education Behaviors: Attitude, Awareness, Participation. Patient functional skills level and potential: Guarded, pt demonstrates fair mobility with C/o pain and discomfort. Patient oriented ot TR services on Rehab unit. Pt/family provided input into goals setting and plan of care. Pt's goal is to return home and return to prior lifestyle. P: Target date set with personal goals established. Will continue with POC focusing on pt/family training and education. For additional information please see Nursing Data Base, PT, OT, CM initial assessments to [facility] and Interdisciplinary Assessments.
--- NOTE | 2017-01-03 14:42 | NUR ---
Significant Event: Alert and oriented. Up with 1A walker and gait belt. Takes [place] for pain. Last given at 1455. TLSO on at all times. 640 mls this shift. Fluid restrict 1250ml. Spinal cord stimulator to back. Continent of bowel and bladder this shift. Mod BM. Cooperative with cares. Uses call light appropriately. Follow up:
[2017-01-04 05:50] LABS: ALK PHOS 66 IU/L (33-138); ALT 29 IU/L (12-78); ANION GAP 14.2 (10.0-19.0); AST 30 IU/L (10-40); BLOOD UREA NITROGEN 11 mg/dL (6-24); CALCIUM 8.9 mg/dL (8.5-10.5); CHLORIDE 97 mMol/L (96-110); CO2 26 mMol/L (22-32); CREATININE 0.7 mg/dL (0.5-1.1); ESTIMATED GFR (MDRD EQUATION) > 60; POTASSIUM 4.2 mMol/L (3.7-5.1); SODIUM 133 mMol/L (135-145); TOTAL PROTEIN 6.1 g/dL (6.0-8.4)
[2017-01-04 05:51] LABS: TOTAL BILIRUBIN 0.3 mg/dL (0.0-1.5)
--- NOTE | 2017-01-04 06:02 | NUR ---
Alert and oriented. Calls for assitance to bathroom. Takes [place] 1 tab every 6 hrs for pain. Last given at 0445. TLSO on at all times. On 1250 ml fld restriction. Like to push the limit. Takes pills whole in water, one at a time.
--- NOTE | 2017-01-04 11:41 | NUR ---
D: TR progress note for 01/04/17. I: Pt seen for leisure education, stress/pain management, and coping strategies. R: Pt seen for functional skills building working on relaxation techniques and pain management, using animals for Animal Assisted Therapy. Pt seen at bedside due to C/o not feeling well. Pt interacted independently with good scanning, bright affect good interacting with animal and volunteer. P: Will continue to see to address goals and plan of care.
--- NOTE | 2017-01-04 13:27 | NUR ---
A-SCREENED D/T LOS; NEW ADMIT TO [facility] WEARS A BACK BRACE AT ALL TIMES. WT: 87.4 KG. HT: 64 IN. BMI: 33.0 LABS REVIEWED: NA 133, ALB 3.0, PREALB 18.0 MEDS: K-TAB, ZOCOR, AMBIEN, SENOKOT, MVI, PROTONIX, MIRALAX, CYMBALTA, PRN BOWEL MEDS, DARVOCET, VALIUM, CIPRO DIET RX: REGULAR W/1200 ML FLUID RESTRICTION. PO INTAKE HAS IMPROVED OVER THE LAST SEVERAL DAYS W/ONLY 1 REFUSAL. PO INTAKE SINCE ADMIT HAS BEEN REF-100%; AVG 49%. EST NUTR NEEDS: 4803-9589 (20-25 KCALS/KG) 70-96 GM PROTEIN (0.8-1.1 GM/KG) FLUID PER MD D-AT NUTRITION RISK W/INADEQUATE PO INTAKE AT TIMES R/T DECREASED APPETITE AEB INTAKE RECORDS. I-CONTINUE W/CURRENT DIET RX AT THIS TIME M/E-GOAL: PO INTAKE >/=505 BY NEXT F/U 1)F/U PO INTAKE; IF PO INTAKE DOES NOT CONTINUE TO TREND UP, WILL PROVIDE NUTRITION SUPPLEMENTS. 2)F/U WT, LABS, AND POC IN 5-6 DAYS 3)ASSIST NEEDED
--- NOTE | 2017-01-04 17:06 | NUR ---
Significant Event:PATIENT ALERT AND ORIENTED THIS SHIFT. VSS. TRANSFERS WITH 1 ASSIST, GAIT BELT AND WALKER. IS SLOW TO MOVE. HAS NOT HAD ANY PAIN MEDS TODAY OTHER THAN HER DAYPRO SHE HAS BEEN NAUSEATED AND HAS HAD A FEW EMESIS TODAY ALSO. HAS NOT EATEN MUCH AT ALL. GIVEN ZOFRAN 8MG PO AT 1303 WHICH HAS HELPED AND WILL SEE IF SHE EATS ANY SUPPER. WEARS TLSO. NO OTHER COMPLAINTS. Follow up:
--- NOTE | 2017-01-05 05:42 | NUR ---
Significant Event:A/O. 1assist w/ Gb and FWW. TLSO at all times. Meds with water. Fluid restriction 1250/day. norco for back and hip pain @ 1930. Relief noted. No emesis this shift. Incontinent of urine, dribbles frequently. alarms on. Call light in reach. Follow up:
--- NOTE | 2017-01-05 14:19 | NUR ---
[facility] Case Management Prefunctioning and Psycho-Social Initial Assessment for 12/30/16 and Case Conference Note for 01/03/17 D: Initial Lease Out ManSports Centre Manager and Case Conference Note. I: Input from: patient, family, Dr. Silvia Constantino, Dr. Go, Nereyda Lackey [facility] R: Reason for admission: lumbar spine stenosis and myelopathy. Admission Date to [facility]: 12/30/16 Admission Date to Hospital: 12/06/16 Prior level of functioning: Unknown prior level of functioning. She had been at [facility] just previously to admission to [facility]. Prior to that, was living at home with daughter. Prior living situation: [facility] Financial resources/expectations: patient has Medicare and Medicaid. Resources used: none. Resources available: HHC, outpatient therapy, SNF, CUSTODIAL, [facility], DME Family support available: daughter Understands nature of health condition: yes Recognizes impact of health condition on lifestyle: yes Vocational/Educational: retired Behavior/Emotional needs: cues for safety. Monitor for signs and symptoms of depression and anxiety. Legal concerns: none. Discharge goal: home with daughter Assessment: Ayo is an 81 year old woman from [place], [place] admitted iwth lumbar spinal stenosis and myelopathy. She has good family support. Plan is for patient remain on [facility] for another week. Looking to d/c her to home with her daughter. Will follow and assist as needed. Orientation to the program and CM services completed with Ayo. Initial plan of care and estimated length of stay discussed, disclosure statement reviewed including patient assessment rights. P: Target date and individual goals established. Please see POC for details. For additional information please see Nursing Data Base, PT, OT, TR, Initial assessments to [facility].
--- NOTE | 2017-01-05 16:50 | NUR ---
Significant Event: Patient alert and oriented. Up with 1 assist. Incontinent at times. Wears soft brace at all times. Can take her brace off to shower. Taking [place] for pain. Was nauseated on and off ttoday but states she feels much better than yesterday. Zofran was given x2 with relief. Fluid restriction.
--- NOTE | 2017-01-06 05:10 | NUR ---
Significant Event:A/O. 1 assist with gaitbelt and FWW. Soft TLSO @ all times. Fluid restriction 1250/day. Denied need for pain medication this shift, did request BENgay for sore muscles. Order received from Dr. Stevens tube of ointment in bin, did not apply; patient asleep. No emesis this shift. Up this shift x2 to void. Held Amlodopine per parameter; 104/49. Call light in reach. Bed alarm on. Follow up:TLSO at all times. Fluid restriction.
--- NOTE | 2017-01-06 09:57 | NUR ---
Significant Event:Alert and orientated, 1 assist with gait belt and walker with wheels. Takes meds whole with water, few @ a time. Remains on fluid restriction 1250 ml/day. Pt dribbles frequently, incontinent of urine. Wears brace while up, can have off in bed, and after sitting in shower. Refused offer of Zofran this am, has PRN nausea. Pt has been pleasant and cooperative with plan of care. Watch lower dentures, pt takes out sometimes and lays any place. Follow up:pain control PRN [place] for back pain, PRN nausea, 1250 fluid restrict, black soft brace on when up, incontinent,
--- NOTE | 2017-01-06 11:55 | NUR ---
D: TR progress note for 01/06/17. I: Pt seen for 2 units at [facility] for community integration skills building, functional transfers, and safety awareness. R: Pt seen for functional skills building working on mobility, safety, endurance and functional transfers in anticipation for discharge back into community. Pt transferred sit > stand from CGA, ambulated with walker 4 feet to/from vehicle CGA and transferred in/out of vehicle CGA with cues for safety and technique along with extra time allotted. Pt was SBA for BLE management and positioning of self with seat surface adapted using cushion and trash bag to ease task. Pt tolerated ride with C/o pain and discomfort when hitting bumps in road but rated pain at "7" at started and "7" at end. P: Will continue to see to address goals and plan of care.
--- NOTE | 2017-01-07 04:58 | NUR ---
Significant Event: norco 1 tab at 2107 for c/o pain to mid back and rt hip. reports good relief with med. up to bathroom with walker and 1 assist. fairly steady gait. wears tlso at all times for comfort per patient request. on 1250 fluid restrict. reports n/t in left toes at times, but none this shift. slept for long intervals. Follow up:
--- NOTE | 2017-01-07 14:46 | NUR ---
Significant Event: Alert and oriented x 3. Up with 1A walker and gait belt. [place] given at 0834. Meds whole with water. Fluid restrict of 1250. Wears tlso at all times. Incontinent at times. Cooperative with cares. Follow up:
--- NOTE | 2017-01-08 01:56 | NUR ---
Significant Event:Up with one assist and use of walker with TLSO brace to be on, pt likes to wear brace all the time. Adjusted brace/velcro pieces x 2. [place] one tab given at 0040 for c/o pain to mid back rated at 6. Tingling toes bilat. Remains continent. Remains on 1250 fluid restriction. Last bm 9th. Po intake around 900 ml. Follow up: Try chocolate pudding to take whole meds in to save on po intake.
--- NOTE | 2017-01-08 13:25 | NUR ---
Significant Event: Alert and oriented x 3. Up with 1A walker and gait belt. [place] given at 0916. TLSO to back when up. Patient prefers to wear it at all times. Denies numbness/ tingling this shift. Mod BM this shift. Continent of bowel and bladder. Cooperative with cares. Follow up:
[2017-01-08 19:18] LABS: BILIRUBIN URINE NEGATIVE (NEGATIVE); BLOOD URINE 250 /UL (NEGATIVE); COLOR URINE YELLOW (YELLOW); GLUCOSE URINE NEGATIVE (NEGATIVE); KETONE URINE NEGATIVE (NEGATIVE); LEUKOCYTES URINE 500 /UL (NEGATIVE); NITRITE URINE POSITIVE (NEGATIVE); PROTEIN URINE 15 mg/dL (NEGATIVE); SPEC GRAVITY URINE 1.005 (1.003-1.035); UROBILINOGEN URINE NORMAL (NORMAL)
[2017-01-08 19:23] LABS: TURBIDITY URINE CLEAR (CLEAR)
[2017-01-08 19:25] LABS: BACTERIA URINE MANY (NEGATIVE); RBC URINE 0-2 #/HPF (NEGATIVE)
[2017-01-08 19:26] LABS: MUCUS URINE 1+ (NEGATIVE)
--- NOTE | 2017-01-09 02:59 | NUR ---
Significant Event:Remains on 1250 ml fluid restriction, usually is close to it's max amt. Has voided x 2. Urine collected per bedpan at 1755, pt had c/o burning/stinging with urination and hesitancy in starting stream. [place] was called--cath ua/culture ordered. Very difficult to insert catheter, cleansed and voids in clean bedpan. UA report on chart--has 500 leukocytes, 2-5 wbc's, many bacteria, some blood from trauma of cath insertion, and positive for nitrates. Pending culture. 109/55, Norvasc hs dose held due to b/p parameters. Rates pain to mid back and rt hip at 4, being dull and constant. Refused pain med at hs and was able to go to sleep easily. Wears TLSO brace all the time per her request; otherwise only needs to wear it when she is out of bed. Follow up:Pending urine culture. Alert dr to urine findings. TLSO brace on when out of bed.
[2017-01-09 05:40] LABS: ALBUMIN 3.3 gm/dL (3.5-5.0); ALK PHOS 60 IU/L (33-138); ALT 26 IU/L (12-78); ANION GAP 11.3 (10.0-19.0); AST 31 IU/L (10-40); BLOOD UREA NITROGEN 15 mg/dL (6-24); CALCIUM 9.4 mg/dL (8.5-10.5); CHLORIDE 98 mMol/L (96-110); CO2 27 mMol/L (22-32); CREATININE 0.8 mg/dL (0.5-1.1); ESTIMATED GFR (MDRD EQUATION) > 60; POTASSIUM 4.3 mMol/L (3.7-5.1); SODIUM 132 mMol/L (135-145); TOTAL PROTEIN 6.5 g/dL (6.0-8.4)
[2017-01-09 05:41] LABS: TOTAL BILIRUBIN 0.4 mg/dL (0.0-1.5)
--- NOTE | 2017-01-09 09:42 | NUR ---
A-NUTRITION F/U CBW (STANDING SCALE): 85.0 KG. ADMIT WT (EST. WT): 87.4 KG. BMI: 32.0 (+)BM. C/O NAUSEA AT TIMES; PRN ZOFRAN GIVEN. LABS: NA 132, K+ 4.3, GLU 103, BUN 15, SOCIAL MEDIA ASSISTANT 0.8, ALB 3.3, PREALB 20.0. PREALB UP FROM PREVIOUS 18.0. MEDS: VIT C DIET RX: REGULAR W/1200 ML FLUID RESTRICTION. PO INTAKE 25-100%; AVG IS 52%. THIS IS UP SLIGHTLY FROM PREVIOUS 49%. EST NUTR NEEDS (RE-EVALUATED D/T ACTUAL WT BEING TAKEN): 3698-5837 KCALS (20-25 KCALS/KG), 68-94 GM PROTEIN (0.8-1.1 GM/KG) D-AT NUTRITION RISK W/INADEUQATE ORAL INTAKE AT TIMES R/T ALTERED GI FXN AEB NAUSEA, INTAKE RECORDS. I-START ENSURE PUDDING BID AT LUNCH AND DINNER M/E-GOAL: PO INTAKE >/=50% OF MEALS AND SUPPLEMENT BY NEXT F/U 1)F/U PO INTAKE, SUPPLEMENT, WT, GI, AND POC IN 3-5 DAYS 2)ASSIST NEEDED
--- NOTE | 2017-01-09 16:47 | NUR ---
Significant Event:Pt alert and orientated x3, expresses needs well. Tranfers with 1 assist, walks to BR with wheeled waker. Note MAR for [place]. Back brace on when up, has to be repositioned several times as rides up on pt. Reports some relief with pain meds and back pain, which increased @ therapy and decreases when returns to unit. Dr Go started Vit C for pt symtoms with urine. Pending urine culture. Pt has been pleasant and cooperative with plan of care. No complaints of dizziness or lightheadedness while @ therapy. Follow up:Back Brace when up, ua culture, pain control.
--- NOTE | 2017-01-10 04:28 | NUR ---
Significant Event: Patient alert and oriented. Transfers 1A GB/Walker. TLSO brace on when up but will wear all the time. PRN [place] Q6h. VSS. Cooperative with cares. 1250 fluid restriction. Incontinent X2. Follow up:
--- NOTE | 2017-01-10 10:21 | NUR ---
Significant Event:Pt alert and orientated x 3, expresses needs well. Tranfers with 1 assist, walks to BR with wheeled walker, has been steady on her feet. Ususally requests 1 [place] before therapy begins to maintain back pain. Back brace on while up. Pt complained of some upset stomach this am, Zofran given. Pt pleasant and cooperative with plan of care. Follow up:Back brace on when up, awaiting culture, pain control.
--- NOTE | 2017-01-10 14:37 | NUR ---
D: TR progress note for 01/10/17. I: Pt seen for 2 units at 1332 for pain/stress management, motor skills, coordination, coping strategies and functional transfers. R: Pt seen for functional skills building working on pain/stress management, motor skills, and coordination using playing cards to increase independence in all leisure task. Pt completed card game "King Delaney ramirez" with SBA > independent demonstrating good recall game's rules/strategies. Pt demonstrated good motor skills utilizing BUE with fair > poor ROM and good math skills and sequencing. Education continued on utilization of leisure to promote recovery, for coping and for pain/stress management with pt in agreement as had C/o pain prior to session started but with no medication or changes verbalized decrease by end of session. Pt transferred sit > stand from WC CGA, ambulated 6 feet to bed with 4WW CGA and transferred to EOB CGA with cues for safety, RN took over to give medication from seated position. P: Will continue to see to address goals and plan of care.
--- NOTE | 2017-01-11 19:09 | NUR ---
Significant Event: patient alert and oriented x3. TLSO brace on when in bed and with activity. csm assessments wnl, denies numbness/tingling. c/o back pain, rate 4 on pain scale, received norco 1 tab at 0839. ambulates to bathroom with 1 assist, use of walker/gait belt, tolerates well. remains on 1250ml fluid restriction, had 640ml in this shift. pleasant and cooperative with cares. Follow up:
--- NOTE | 2017-01-12 02:20 | NUR ---
Significant Event:A/O. 1 assist transfer with gb and walker, shoes need to be on. Soft TLSO brace on at all times.[place] for back pain last at 2129. Sores on tips of L) great and 2nd toe & R) 2nd toe, cause is undetermined. continue to monitor. Some dribbling, wears a brief. Call light within reach. Bed alarm on. Follow up:Toileting. Alarms. Sores on toes.
--- NOTE | 2017-01-12 12:56 | NUR ---
D: Marketing Forecaster Team Conference Follow up for 01/10/17 I: Input from patient/family R: Met with: patient, family, Nereyda Bhatt ENROUTE CONTROLLER Discussed rehab plan, patient progress, discharge plan and estimated length of stay of d/c planned in approx. 7 days. Patient/Family Preference: in agreement. Anticipated discharge disposition: home with either [facility] vs. outpatient therapy. Education completed: Education was completed with patient regarding length of stay, progress in therapy and d/c plan. Assessment/Recommendation: Team recommends d/c in approx. 7 days. P: Case Coordination: Ayo is an 81 year old woman from [place], [place] admitted with lumbar spinal stenosis. She has good family support. Plan is to d/c in approx. 7 days. Will follow.
--- NOTE | 2017-01-12 14:53 | NUR ---
A - NUTRITION FOLLOW-UP LABS: NA 132, GLU 103, ALB 3.3, PRE-ALB 20 NEW MEDS: VIT C. ON [place]MB[place]. DIET: REGULAR W/ 1250ML FLUID RESTRICTION. INTAKE 61% X11 MEALS, IMPROVED FROM LAST ASSESSMENT (52%). PT REPORTED POOR APPETITE THOUGH. DISLIKES ENSURE PUDDING. OFFERED DIFFERENT ORAL SUPPLEMENT OPTIONS, AGREED TO TRY. EST NEEDS: [id number] KCAL, 70-96 GRAMS PROTEIN, FLUID NEEDS: PER MD D - INADEQUATE ORAL INTAKE RELATED TO ALTERATION IN APPETITE EVIDENCED BY PO 61% X11 MEALS AND PT REPORT. I - PT AGREED TO TRY HIGH PROTEIN SNACK BID AND MAGIC CUP ONCE DAILY. M/E - GOAL: PT WILL BE ABLE TO TOLERATE >70% OF MEALS AND AT LEAST ONE ORAL SUPPLEMENT/SNACK PER DAY IN 5-7 DAYS.
--- NOTE | 2017-01-12 16:19 | NUR ---
Significant Event:Ambulates with one assist and walker. TLSO brace at all times. Has to wear her own shoes when ambulating d/t lift in shoes. Voids without difficulty. 1250mL fluid restriction. [place] 1 tab last at 1415. Follow up:
--- NOTE | 2017-01-13 03:09 | NUR ---
Significant Event:A/O. 1 assist transfer with gaitbelt and walker, needs shoes on when transfering (lifted shoe). Soft TLSO on at all times. VSS on room air. [place] for pain, last at 2109. Fluid restriction. Sores to tips of L) great and 2nd toe and 2nd toe of right foot. Call light in reach. Bed alarm on. Follow up:
[2017-01-13 05:48] LABS: ALBUMIN 3.7 gm/dL (3.5-5.0); ANION GAP 12.5 (10.0-19.0); CALCIUM 9.9 mg/dL (8.5-10.5); CREATININE 0.9 mg/dL (0.5-1.1); POTASSIUM 4.5 mMol/L (3.7-5.1); TOTAL PROTEIN 7.5 g/dL (6.0-8.4)
[2017-01-13 05:49] LABS: TOTAL BILIRUBIN 0.5 mg/dL (0.0-1.5)
--- NOTE | 2017-01-13 12:28 | NUR ---
D: TR progress note for 01/13/17. I: Pt seen for 2 units at 1032 for community integration skills building, functional transfers, and safety awareness. R: Pt seen for functional skills building working on mobility, safety, endurance and functional transfers in anticipation for discharge back into community. Pt transferred sit > stand from EOB SBA, pivoted to WC with 4WW SBA and transferred into WC SBA with good safety recall when managing 4WW but not reaching back. Pt transferred sit > stand from WC SBA, ambulated with 4WW 4 feet to/from vehicle SBA > CGA and transferred in/out of vehicle SBA > CGA with seat surface adapted using cushion and trash bag. Pt was SBA for BLE management and positioning of self with cues to maintain spinal precautions. Pt tolerated ride but stated increase in discomfort during car rides. P: Will continue to see to address goals and plan of care.
--- NOTE | 2017-01-13 16:35 | NUR ---
Significant Event: Patient alert and oriented. Up with 1 assist. Needs shoes on when up. Wears soft brace. Fluid restriction. Takes [place] for pain. Had some nausea around lunchtime. Zofran given with relief. Follow up:
--- NOTE | 2017-01-14 03:27 | NUR ---
Significant Event: Patient is alert and oriented, VSS. Up one assist with GB/walker and needs her shoes, gait is slow and steady. Wears a soft brace when up but likes it on in bed too. Takes [place] at 2200 for pain. Continues on a fluid restriction of 1250 mls. Some nausea yesterday none for shift production associate. Alarmed for safety. Uses call light appropriately. Follow up:
--- NOTE | 2017-01-14 15:10 | NUR ---
Significant Event: PATIENT ALERT AND ORIENTED X3. UP 1 ASSIST, WALKER, GAIT BELT, TLSO. TLSO CAN BE REMOVED IN BED IF PATIENT PREFERS. NORCO FOR PAIN. FEEDS SELF IN BED. VITALS STABLE ON ROOM AIR. CALLS APPROPRIATELY. CONTINENT OF BOWEL AND BLADDER.[address] DENSON SAW HER TODAY AND CONSTULED SANTOSH (ORTHO) FOR A COMPLAINT OF "PERINEAL NERVE PAIN". SANTOSH WAS ALREADY CONSULTED ON HER. Follow up:
--- NOTE | 2017-01-15 04:25 | NUR ---
Significant Event: Patient is alert and oriented, VSS. Up one assist with GB/Walker. Wears a soft brace to her back when up but prefersto have it on in bed too. Denies pain but requests her [place] at bedtime. Refuses her Ambien at night. Was not given her laxatives last night due to report of loose stools yesterday. Follow up:
--- NOTE | 2017-01-15 15:07 | NUR ---
Significant Event: PATIENT UP 1 ASSIST, WALKER, GAIT BELT. ALERT AND ORIENTED X3. [place]CO FOR PAIN X2. FEED SELF WELL. MEDS WHOLE WITH WATER VERY SLOWLY. TLSO ON WHEN UP. CONTINENT OF BOWEL AND BLADDER. VITALS STABLE ON ROOM AIR. DAUGHTER AT BEDSIDE. Follow up:
--- NOTE | 2017-01-16 03:42 | NUR ---
Significant Event:A/O. 1 assist transfer with gb and front wheel walker; needs shoes on for transfers d/t lift on shoe. Soft TLSO on when up, patient prefers to wear at all times. Meds whole with water 1-2 at a time. [place] for pain at 2215, relief noted. VSS on room air. Pneumatic pumps to BLE. Call light in reach, bed alarm on. Follow up:Wanting to know discharge date.
[2017-01-16 06:17] LABS: ALBUMIN 3.3 gm/dL (3.5-5.0); ALK PHOS 69 IU/L (33-138); ALT 22 IU/L (12-78); AST 30 IU/L (10-40); BLOOD UREA NITROGEN 15 mg/dL (6-24); CALCIUM 9.4 mg/dL (8.5-10.5); CHLORIDE 97 mMol/L (96-110); CO2 26 mMol/L (22-32); CREATININE 0.7 mg/dL (0.5-1.1); ESTIMATED GFR (MDRD EQUATION) > 60; SODIUM 131 mMol/L (135-145); TOTAL BILIRUBIN 0.4 mg/dL (0.0-1.5); TOTAL PROTEIN 6.6 g/dL (6.0-8.4)
--- NOTE | 2017-01-16 17:10 | NUR ---
Significant Event:PATIENT ALERT AND ORIENTED BUT IS FORGETFUL. VSS. TRANSFERS WITH 1 ASSIST, GAIT BELT AND WALKER. REPORTED HAVING SOME PAIN THIS AM BUT REFUSED ANY PAIN MEDS. WAS NAUSEATED AT BREAKFAST SO DIDN'T EAT AND REFUSED ALL HER MEDICATIONS. THERAPIES DONE IN HER ROOM THIS AM BUT SHE DID GO TO THERAPY AFTER LUNCH AND DID EAT AT LUNCH TIME. COMPLAINED OF PAIN LATER AND GIVEN NORCO 1 TAB PO AT 1217. IS ON A FLUID RESTRICTION AND HAS DONE OK WITH IT. FAMILY AT BEDSIDE OFF AND ON THROUGHOUT THE DAY. RESTS IN BED BETWEEN THERAPIES. NO OTHER COMPLAINTS. Follow up:
--- NOTE | 2017-01-17 04:05 | NUR ---
Significant Event:A/O. Transfer 1 assist w/ GB and walker.Shoes on for all transfers, lift to left shoe. TLSO on when up, patient preferes to have on at all times. [place] at beginning of shift. VSS. [place] at 2210 for back pain. Nausea at HS refused Inez, Karly Avery, & Nikole. Fluid restriction. Call light in reach. Follow up:Fluid restriction
--- NOTE | 2017-01-17 12:10 | NUR ---
A-NUTRITION F/U CBW: 82.7 KG. PT'S WT IS DOWN 2.3 KG X 1 WEEK AND 4.7 KG SINCE ADMIT VISITED W/PT RE: APPETITE AND WT LOSS. PT STATES THAT HER APPETITE HAS NOT BEEN VERY GOOD, AND SHE IS HAVING SOME NAUSEA. SHE LIKES THE ADITYA. PUDDING, BUT DOES NOT LIKE THE MAGIC CUP. DISCUSSED ENSURE COMPACT WITH PT; SHE IS AGREEABLE TO TRYING TID W/MEALS. LABS: NA 131, K+ 4.0, GLU 100, BUN 15, CHEMICALS FERMENTATION OPERATOR 0.1, ALB 3.3, PREALB 22.0 NO NEW MEDS SINCE LAST F/U DIET RX: REGULAR W/1200 ML FLUID RESTRICTION. HIGH PROTEIN SNACK BID AND MAGIC CUP QD. PO INTAKE HAS BEEN REF-100%; AVG IS 63%. THIS IS ACTUALLY UP SLIGHTLY FROM LAST F/U. EST NUTR NEEDS: 6851-1213 KCALS AND 70-96 GM PROTEIN D-AT NUTR RISK W/INADEQUATE ORAL INTAKE R/T DECREASED APPETITE, ALT. GI FXN AEB INTAKE RECORDS, WT LOSS, PT REPORT. I-1)D/C MAGIC CUP 2)ADD ENSURE COMPACT TID W/MEALS 3)PT REPORTS THAT SHE IS GOING HOME TOMORROW. ENCOURAGED HER TO CONTINUE W/ SUPPLEMENT OF HER CHOICE UPON D/C UNTIL HER APPETITE AND PO INTAKE IMPROVE M/E-GOAL: PO INTAKE >/=65% WITH NO REFUSALS BY NEXT F/U 1)F/U PO INTAKE, SUPPLEMENT, WT, AND POC IN 3-5 DAYS 2)ASSIST NEEDED
--- NOTE | 2017-01-17 14:47 | NUR ---
D: TR progress note for 01/17/17. I: Pt seen for 2 units 1030 for community integration skills building, functional transfers, safety awareness and discharge planning. R: Pt seen for functional skills building working on community integration skills, safety and functional transfers in anticipation for discharge back into community with family. Pt transferred supine > sit SBA, sit > stand SBA and pivoted to WC with 4WW SBA with cues for reaching back. Education and review done on energy conservation in community setting, safety when traveling long distances in vehicle, and options with transportation using public handibus once [facility] [place] done [facility] and others community events. Education and review done on not operating motorized vehicle until receiving Physician's approval and reviewed community safety concerns. Pt transferred sit > stand from WC SBA, pivoted to bed with 4WW SBA and transferred into bed SBA with good safety awareness. P: Will discharge to home tomorrow, 01/18/17.
--- NOTE | 2017-01-17 16:36 | NUR ---
Significant Event: Pt up in room with walker, 1 assist, steady, baljinder. well. back brace on. Remains on fluid restriction 1250/day. [place] given this afternoon. Pt nauseated off/on. Stress inc. at times. Takes meds sparatically t/o day. Does not like them all at once. Prior shift reported pt has let herself out of the BR, so stay in room while pt in BR. Pt fatigues at times. Follow up: plan for discharge to home with home health, pain management, brace when up.
--- NOTE | 2017-01-18 03:07 | NUR ---
Significant Event:A/O. 1 assist transfer with GB and walker, needs to wear shoes at all transfers. Left shoe lifted. Soft TLSO on at all times. Refusing some of her meds citing they are making her nauseous. [place] AT 2220 for general discomfort and back pain. No nausea or vomiting this shift. Patient removes herself from bathroom, stay in room. VSS on room air. Participates with therapy. Call light in reach. Bed alarm on. Follow up:Transfers. Nausea/Vomiting. Discharge to Home today with daughter.
[2017-01-18] MEDS ORDERED: ARTIFICIAL TEA3.5 G1 OPHTH (06:51)
[2017-01-18] MEDS ORDERED: ASCORBIC ACID500 MG PO (06:54)
[2017-01-18] MEDS ORDERED: MACROBID100 MG PO (07:00)
[2017-01-18] MEDS ORDERED: PROTONIX40 MG PO (07:01)
[2017-01-18] MEDS ORDERED: K-TAB 10MEQ10 MEQ PO (07:02)
[2017-01-18] MEDS ORDERED: TYLENOL325 MG PO (08:57)
[2017-01-18] MEDS ORDERED: ZOFRAN4 MG PO (08:58)
--- NOTE | 2017-01-18 12:10 | NUR ---
D: TR progress note for 01/18/17. I: Pt seen for 2 units at 1100 in group session for education on safety when around pets/animals, group participation, and leisure education. management, and coping strategies . R: Pt seen for functional skills building working on relaxation techniques, stress/pain management, continued education on coping skills using animals for Animal Assisted Therapy. Pt completed functional communication skills independently which included introduction and shared with group about family pets. Pt independently with interaction with animals, volunteers and peers, independent when handling and maneuvering animals during Animal Assisted Therapy utilizing BUE with good safety awareness and good bilateral scanning. Education done on safety with ambulation/mobility in homes when around animals, safety with possibility of poor skin integrity and utilizing pets to assist with coping and stress/pain management when opportunity available. P: Will continue to see to address goals and plan of care.
--- NOTE | 2017-01-18 13:03 | NUR ---
Dismissed per w/c to car by transport to go home with daughter.Discharge instructions given to pt.& daughter by charge nurse & papers given.Verbalized understandment.
--- NOTE | 2017-01-21 09:34 | NUR ---
D: Proration Clerk Team Conference Follow up for 01/17/17 and Discharge Note for 01/18/17 I: Input from patient/family R: Met with: patient, daughter, Dr. Go, Nereyda Lackey [employer]EN Discussed rehab plan, patient progress, discharge plan and estimated length of stay of d/c planned on 01/18/17 with [facility]. Patient/Family Preference: patient and daughter are in agreement. Anticipated discharge disposition: home with [facility]. Patient elected for [facility]. Education completed: Education was completed with patient regarding length of stay, progress in therapy and d/c plan. Assessment/Recommendation: Team recommends d/c. P: Case Coordination: Ayo is an 81 year old woman from [place], [place] admitted with lumbar spinal stenosis. She is discharging to home with daughter in [place] and [facility]. Will call patient next week to see how she is doing post discharge.
== END 2017-01-18 13:04 | disposition home health service (06) | DRG 552 ==
LOC: GIRP 09:09
PROVIDERS: Family Medicine; ADMIT Physical Medicine & Rehabilitation
PROC: F08Z2FZ Grooming/Personal Hygiene Treatment using Assistive, Adaptive, Supportive or Protective Equipment (ICD-10-PCS; principal; 2016-12-30)
PROC: F07Z9FZ Gait Training/Functional Ambulation Treatment using Assistive, Adaptive, Supportive or Protective Equipment (ICD-10-PCS; principal; 2016-12-30)
DX: M51.06 Intervertebral disc disorders with myelopathy, lumbar region (principal); N39.0 Urinary tract infection, site not specified; I10 Essential (primary) hypertension; R26.81 Unsteadiness on feet; Z74.1 Need for assistance with personal care; Z91.81 History of falling; K59.00 Constipation, unspecified; Z87.440 Personal history of urinary (tract) infections; E78.5 Hyperlipidemia, unspecified; K21.9 Gastro-esophageal reflux disease without esophagitis; I25.10 Atherosclerotic heart disease of native coronary artery without angina pectoris; B96.89 Other specified bacterial agents as the cause of diseases classified elsewhere
CPT/HCPCS: J1650